=== PATIENT | male | born 1945 | race Caucasian/White ===

== ENCOUNTER → 2019-01-30 | Outpatient (CLI) | payer MEDICARE ==
--- NOTE | 2019-01-30 21:05 | XCELERA REPORT ---
[address] [address] Transthoracic Echocardiogram Report Name: ROSALIA LAKE Age: 73 yrs Gender: Male : 1945 Patient Status: Outpatient Patient Location: Study Date: 01/30/2019 12:38 PM Height: 69 in Weight: 235 lb BSA: 2.2 m2 Procedure: A two-dimensional transthoracic echocardiogram with color flow and Doppler was performed. Study Quality: Technically suboptimal. Images were not obtained from all of the standard acoustic windows due to the limited scope of the study. Reason For Study: HTN History: HTN. Ordering Physician: SATURNINO BLACKMAN Performed By: Sugar Haji Interpretation Summary The left ventricle is normal in size. There is normal left ventricular wall thickness. No True apical 2 chamber views obtained.Hence cannot comment on the apical anterior , the basal anterior, the basal inferior and apical inferior schmidt.The mid anterior , the mid inferior and the rest of the LV schmidt contract normally. . LVEF is normal and is greater than 60% in the limited views. Doppler measurements suggest impaired left ventricular relaxation, which is associated with grade I/IV or mild diastolic dysfunction There is no thrombus. Cannot assess for ASD,VSD , or PFO. The right atrium is normal. The left atrium is borderline dilated. There is no evidence of mitral valve prolapse. There is no vegetation seen on the mitral valve. There is no mitral valve stenosis. There is a trace amount of mitral regurgitation There is no aortic valve stenosis There is no LVOT obstruction. No aortic regurgitation is present. There is no tricuspid stenosis. There is a trace amount of tricuspid regurgitation Right ventricular systolic pressure is normal. RVSP is 24 to 29 mm of Hg , with RA mean of 5 to 10. There is no pulmonic valvular stenosis. There is a trace amount of pulmonic regurgitation The aortic root is normal size. The inferior vena cava appeared normal and decreased > 50% with respiration (RAP 5-10 mmHg) There is no pericardial effusion. MMode/2D Measurements & Calculations RVDd: 3.9 cm LVIDd: 5.7 cm FS: 28.9 % Ao root diam: 3.2 cm IVSd: 0.78 cm LVIDs: 4.0 cm EDV(Teich): 157.6 ml Ao root area: 8.0 cm2 LVPWd: 0.96 cm ESV(Teich): 71.0 ml EF(Teich): 54.9 % Doppler Measurements & Calculations MV E max rain: MV dec slope: Ao V2 max: LV V1 max P.5 cm/sec 246.0 cm/sec2 138.5 cm/sec 3.8 mmHg MV A max rain: MV dec time: 0.23 secAo max P.7 mmHgLV V1 max: 79.3 cm/sec 97.2 cm/sec MV E/A: 0.71 PA V2 max: PI end-d rain: TR max rain: 152.9 cm/sec 127.4 cm/sec 216.1 cm/sec PA max P.4 mmHg TR max P.7 mmHg Left Ventricle The left ventricle is normal in size. There is normal left ventricular wall thickness. No True apical 2 chamber views obtained.Hence cannot comment on the apical anterior , the basal anterior, the basal inferior and apical inferior schmidt.The mid anterior , the mid inferior and the rest of the LV schmidt contract normally. . LVEF is normal and is greater than 60% in the limited views. Doppler measurements suggest impaired left ventricular relaxation, which is associated with grade I/IV or mild diastolic dysfunction. There is no thrombus. Cannot assess for ASD,VSD , or PFO. Right Ventricle The right ventricle is not well visualized secondary to technical limitations. Atria The right atrium is normal. The left atrium is borderline dilated. Mitral Valve There is no evidence of mitral valve prolapse. There is no vegetation seen on the mitral valve. There is no mitral valve stenosis. There is a trace amount of mitral regurgitation. Aortic Valve There is no aortic valvular vegetation. There is no aortic valve stenosis. There is no LVOT obstruction. No aortic regurgitation is present. Tricuspid Valve There is no tricuspid stenosis. There is a trace amount of tricuspid regurgitation. Right ventricular systolic pressure is normal. RVSP is 24 to 29 mm of Hg , with RA mean of 5 to 10. Pulmonic Valve There is no pulmonic valvular stenosis. There is a trace amount of pulmonic regurgitation. Great Vessels The aortic root is normal size. The inferior vena cava appeared normal and decreased > 50% with respiration (RAP 5-10 mmHg). The inferior vena cava was not well visualized. Effusions There is no pericardial effusion. : SATURNINO BLACKMAN > Odalis Gonzalez
== END ==
LOC: SP 12:26
PROVIDERS: ATTEND Nurse Practitioner Family
DX: I10 Essential (primary) hypertension (principal)
CPT/HCPCS: 93306